=== PATIENT | male | born 1975 ===

== ENCOUNTER 2018-12-21 16:54 | Emergency (ER) | payer OTHER ==
[2018-12-21 17:06] VITALS: BP 151/88; PULSE 73; RESP 16; TEMP 98.3; O2SAT 99
--- NOTE | 2018-12-21 18:57 | ED PDOC ---
HPI: General Adult Time Seen by Provider: 12/21/18 17:08 Chief Complaint (Nursing): ENT Problem Chief Complaint (Provider): Blurry Vision, Right Ear Pain History Per: Patient History/Exam Limitations: no limitations Onset/Duration Of Symptoms: Days (x1) Current Symptoms Are (Timing): Still Present Additional Complaint(s): 43 year old male presents to the ED for evaluation of blurry vision and redness to his left eye without pain since waking up yesterday morning. He describes it as seeing approximately 30-40% less clearly from the eye. Additionally, patient reports right ear pain for the past four days. Of note, patient was discharged from [facility] ED earlier today where he had normal CBC / head CT results and advised to follow up with an eye doctor. Patient however was concerned he may need antibiotics so returned to this ED for further evaluation. Otherwise, denies weakness, headache, history of diabetes, contact lens use, discharge from eye, trauma, chest pain, numbness, and tingling. PMD: none provided Past Medical History Reviewed: Historical Data, Nursing Documentation, Vital Signs Vital Signs: Last Vital Signs Temp 98.3 F 12/21/18 17:04 Pulse 73 12/21/18 17:04 Resp 16 12/21/18 17:04 BP 151/88 H 12/21/18 17:04 Pulse Ox 99 12/21/18 17:04 - Medical History PMH: No Chronic Diseases - Surgical History Surgical History: No Surg Hx - Family History Family History: States: Unknown Family Hx - Social History Current smoker - smoking cessation education provided: No Alcohol: None Drugs: Denies - Home Medications Home Medications: Ambulatory Orders Medication Instructions Recorded Neomycin/Polymyxin/Hydrocortis 3 - 4 drop OD TID #1 bottle 12/21/18 [Cortisporin Otic Susp] - Allergies Allergies/Adverse Reactions: Allergies Allergy/AdvReac Type Severity Reaction Status Date / Time No Known Allergies Allergy Verified 12/21/18 17:04 Review of Systems ROS Statement: Except As Marked, All Systems Reviewed And Found Negative Constitutional: Negative for: Weakness Eyes: Positive for: Vision Change (left eye blurry vision), Redness (left). Negative for: Other (discharge or trauma) ENT: Positive for: Ear Pain (right) Cardiovascular: Negative for: Chest Pain Neurological: Negative for: Numbness, Headache, Other (tingling) Physical Exam - Reviewed Nursing Documentation Reviewed: Yes Vital Signs Reviewed: Yes - Physical Exam Appears: Positive for: No Acute Distress Head Exam: Positive for: ATRAUMATIC, NORMAL INSPECTION, NORMOCEPHALIC Skin: Positive for: Normal Color, Warm, Dry. Negative for: Rash Eye Exam: Positive for: Normal appearance, EOMI (painless). Negative for: Conjunctival injection ENT: Positive for: Other (right ear: positive cerumen impaction; left ear: TM intact and canal clear; no mastoid swelling or tenderness) Neurologic/Psych: Positive for: Alert, Oriented (x3) - ECG O2 Sat by Pulse Oximetry: 99 (RA) Pulse Ox Interpretation: Normal Medical Decision Making Medical Decision Making: Time: 1729 Initial Impression: cerumen impaction Initial Plan: --Discussed case with attending Dr. Mendoza who recommends consult with Dr. Pruitt. [address] Pruitt who advised for patient to follow up in his office tomorrow. He states patient does not need medication for his eye at this time. Patient verbalized agreement and understanding of plan. 1800 Removed cerumen impaction with curette from right ear. Patient reports good resolution of pain. Post removal examination however reveals the ear canal to be mildly erythematous but non-bloody with TM intact. Patient stable for discharge with script for Cortisporin ear drops and return parameters discussed. Patient verbalized agreement and understanding of plan and treatment. Scribe Attestation: Documented by Anne Marie Wilhelm, acting as a scribe for Sven Matthews PA-C. Provider Scribe Attestation: All medical record entries made by the Scribe were at my direction and personally dictated by me. I have reviewed the chart and agree that the record accurately reflects my personal performance of the history, physical exam, medical decision making, and the department course for this patient. I have also personally directed, reviewed, and agree with the discharge instructions and disposition. Disposition - Clinical Impression Clinical Impression: Blurry vision, left eye, Impacted cerumen of right ear - Disposition Referrals: Mio Pruitt MD [Staff Provider] - Disposition Time: 18:05 Condition: STABLE Additional Instructions: FOLLOW UP WITH DR. PRUITT TOMORROW WITHOUT FAIL RETURN TO ED IMMEDIATELY IF SYMPTOMS WORSEN ANTONIA HORTA, thank you for letting us take care of you today. Your provider was Anna Mendoza MD and you were treated for RT SIDE EARACHE,BLURRY VISION. The emergency medical care you received today was directed at your acute symptoms. If you were prescribed any medication, please fill it and take as directed. It may take several days for your symptoms to r esolve. Return to the Emergency Department if your symptoms worsen, do not improve, or if you have any other problems. Please contact your doctor or call one of the physicians/clinics you have been r eferred to that are listed on the Patient Visit Information form that is included in your discharge packet. Bring any paperwork you were given at discharge with you along with any medications you are taking to your follow up visit. Our treatment cannot replace ongoing medical care by a primary care provider outside of the emergency department. Thank you for allowing the [facility] team to be part of your care today. If you had an X-Ray or CT scan: A Radiologist will review the ED reading if any change in treatment is needed we will contact you. If you had a blood, urine, or wound culture: It will take several days for the results, if any change in treatment is needed we will contact you. If you had an STI test: It will take 48 hours for the results. Please call after 1 week if you have not heard back. Prescriptions: Neomycin/Polymyxin/Hydrocortis [Cortisporin Otic Susp] 3 - 4 drop OD TID #1 bottle Forms: [employer] (Japanese) Print Language: CUBAN
== END 2018-12-21 18:21 | disposition home or self-care (01) ==
LOC: H.ER 16:54
DX: H53.8 Other visual disturbances (principal); H61.21 Impacted cerumen, right ear